=== PATIENT | male | born 1945 | race Caucasian/White ===

== ENCOUNTER 2021-12-13 13:38 | Inpatient (IN) | payer MEDICARE, BC ==
[~2021-12-13] VITALS: Ht 167.6 cm; Wt 90.7 kg
--- NOTE | 2021-12-13 14:50 | NUR ---
MS RN DIRECT ADMIT NOTES RECEIVED PATIENT - DIRECT ADMIT FROM MORRIS. PATIENT IN BED, AWAKE, A/O X4. ON ROOM AIR; NO SOB OR ANY S/S OF RESPIRATORY DISTRESS. NO COMPLAINS OF PAIN AT THIS TIME. CONDOM CATH IN PLACE. VS WITHIN NORMAL LIMITS. SAFETY PRECAUTIONS IN PLACE; BED IN LOW POSITION AND LOCKED, RAILS UP X2, CALL LIGHT WITHIN REACH. WILL CONTINUE TO MONITOR PATIENT.
[2021-12-13] MEDS ORDERED: METF-881 PO (15:03)
[2021-12-13] MEDS ORDERED: BENA40TA8 PO (15:03)
[2021-12-13] MEDS ORDERED: ALLO100T PO (15:03)
[2021-12-13 16:11] VITALS: BP 139/68
[2021-12-13] MEDS ORDERED: ONDANSETRON HCL/PF 4 MG/2 ML VIAL IVP PRN (16:30)
[2021-12-13] MEDS ORDERED: MAG HYDROX/AL HYDROX/SIMETH 30 ML UDC PO PRN (16:30)
[2021-12-13] MEDS ORDERED: ACETAMINOPHEN 325 MG TABLET PO PRN (16:30)
[2021-12-13] MEDS ORDERED: Z GUARD REMEDY 4 OZ OINT TP PRN (17:00)
[2021-12-13] MEDS: IV D5/0.45 NACL 1,000 ML IV PRN (18:36)
--- NOTE | 2021-12-13 18:58 | NUR ---
MS RN CLOSING NOTES PATIENT IN BED, AWAKE, A/O X4. PATIENT ON ROOM AIR; BREATHING EVEN AND UNLABORED; NO SOB OR ANY S/S OF RESPIRATORY DISTRESS DURING THE DAY. MILD BACK PAIN 3/10 AT THIS TIME. LFA IV ACCESS RUNNING D5 1/2 NS @ 75 MLS/HR. CONDOM CATH IN PLACE DRAINING DARK YELLOW URINE. ALL NEEDS ATTENDED DURING THE DAY. SAFETY PRECAUTIONS IN PLACE; BED IN LOW POSITION AND LOCKED, RAILS UP X2, CALL LIGHT WITHIN REACH. WILL ENDORSE TO CENTER LINE CUTTER OPERATOR NURSE FOR MARGARITA.
--- NOTE | 2021-12-13 19:10 | NUR ---
MS/RN OPENING NOTE RECEIVED PATIENT RESTING IN BED. AWAKE, ALERT AND ORIENTED X 4. ABLE TO MAKE NEEDS KNOWN. DENIES PAIN AT THIS TIME. CONTINUES ON ROOM AIR WITH NO S/SX OF RESPIRATORY DISTRESS NOTED. IV ACCESS TO LEFT FOREARM #20G AND RIGHT WRIST #20G BOTH INTACT AND PATENT. CONTINUES ON IVF D5 1/2 NS @ 75ML/HR. PATIENT IS NPO AFTER MIDNIGHT FOR PLANNED ERCP PROCEDURE IN AM. PATIENT AWARE AND AGREEABLE. WILL OBTAIN CONSENT TONIGHT. CONDOM CATHETER IN PLACE DRAINING KEN COLORED URINE TO GRAVITY. CALL LIGHT WITHIN REACH. FREQUENT SAFETY CHECKS MADE. ASPIRATION, FALL AND SAFETY PRECAUTIONS MAINTAINED. ALL NEEDS ATTENDED TO AT THIS TIME.
[2021-12-13 20:00] VITALS: BP 139/77
--- NOTE | 2021-12-13 20:00 | NUR ---
MS/RN NOTE OBTAINED INFORMED CONSENT FOR ERCP ON 12/13. CONSENT SIGNED BY SECOND RN GERMAN D/T PATIENT UNABLE TO SIGN. CONSENT PLACED IN CHART. PATIENT IS NPO AFTER MIDNIGHT. AWARE AND AGREEABLE.
--- NOTE | 2021-12-13 21:00 | NUR ---
MS/RN NOTE IV TO RIGHT WRIST DISLODGED. REMOVED IV AND PRESSURE DRESSING APPLIED. MINIMAL DRAINAGE NOTED. PATIENT TOLERATED WELL. CURRENT IV SITE IS LEFT FOREARM #20G INTACT AND PATENT.
[2021-12-13] MEDS ORDERED: MAGNESIUM HYDROXIDE 30 ML UDC PO PRN (22:00)
[2021-12-14] MEDS: MORPHINE SULFATE INJ 2 MG/ML DISP.SYRIN IV PRN ×2 (03:02→22:17)
--- NOTE | 2021-12-14 06:10 | NUR ---
MS/RN CLOSING NOTE PATIENT CURRENTLY SLEEPING IN BED. ALERT AND ORIENTED X 4. ABLE TO MAKE NEEDS KNOWN. DENIES PAIN AT THIS TIME. CONTINUES ON ROOM AIR WITH NO S/SX OF RESPIRATORY DISTRESS NOTED. IV ACCESS TO LEFT FOREARM #20G INTACT AND PATENT. CONTINUES ON IVF D5 1/2 NS @ 75ML/HR. CONTINUES ON NPO STATUS FOR ERCP PROCEDURE TODAY. PATIENT AWARE AND AGREEABLE. CONSENT IN CHART. CONDOM CATHETER IN PLACE DRAINING KEN COLORED URINE TO GRAVITY. CALL LIGHT WITHIN REACH. FREQUENT SAFETY CHECKS MADE. ASPIRATION, FALL AND SAFETY PRECAUTIONS MAINTAINED. WILL ENDORSE PLAN OF CARE TO ONCOMING SHIFT RN.
[2021-12-14 06:19] LABS: BASOPHILS % (AUTO) 0.6 % (0.0-2.0); HEMATOCRIT 34 % (39-51); HEMOGLOBIN 11.4 g/dL (13.5-17.5); LYMPHOCYTES # (AUTO) 1.5 K/uL (0.8-4.8); LYMPHOCYTES % (AUTO) 22.2 % (20.0-44.0); MEAN CORPUSCULAR HGB CONC 33 g/dl (31.0-36.0); MEAN CORPUSCULAR VOLUME 89 fL (80-96); MONOCYTES # (AUTO) 0.5 K/uL (0.1-1.30); MONOCYTES % (AUTO) 7.4 % (2.0-12.0); NEUTROPHILS # (AUTO) 4.4 K/uL (1.8-8.9); NEUTROPHILS % (AUTO) 65.8 % (43.0-81.0); PLATELET COUNT (AUTO) 215 K/uL (150-450); RED BLOOD CELL COUNT(AUTO) 3.83 MIL/uL (4.5-6.0); WHITE BLOOD COUNT (AUTO) 6.7 K/uL (4.3-11.0)
--- NOTE | 2021-12-14 07:50 | NUR ---
MS RN OPENING NOTE. RECEIVED PATIENT RESTING IN BED, EASILY AROUSED UPON INTRODUCTION. A/O X4. NO CURRENT S/SX OF RESPIRATORY DISTRESS OR C/O PAIN. IV ACCESS TO LEFT FOREARM INTACT AND PATENT AT THIS TIME. REMAINS ON NPO STATUS FOR PLANNED ERCP PROCEDURE SCHEDULED FOR 10AM ON SHIFT. CONDOM CATHETER INTACT AND FLOWING WELL. BED IN LOWEST POSITION AND LOCKED. BED FLAT PER PATIENT REQUEST. SIDERAIL UP X2. CALL-LIGHT WITHIN REACH ALTHUGH PATIENT UNABLE TO USE DUE TO QUADRIPLEGIC STATUS. PATIENT ABLE TO CALL OUT AND VERBALIZE NEEDS. WILL CONTINUE TO MONITOR.
[2021-12-14 08:06] LABS: ALBUMIN 2.7 g/dL (3.4-5.0); BILIRUBIN,DIRECT 1.5 mg/dL (0.0-0.2); BILIRUBIN,TOTAL 3.2 mg/dL (0.2-1.0); CREATININE 0.6 mg/dL (0.6-1.3); MAGNESIUM 1.7 mg/dL (1.8-2.4); PHOSPHORUS 2.6 mg/dL (2.5-4.9); TOTAL PROTEIN, SERUM 6.8 g/dL (6.4-8.2)
[2021-12-14 08:21] LABS: POTASSIUM 3.6 mmol/L (3.5-5.1)
[2021-12-14] MEDS ORDERED: IOHEXOL 50 ML IV ONE (08:26)
[2021-12-14] MEDS ORDERED: ANESTHESIA TRAY IN PYXIS 1 EA TRAY MC ONE (08:27)
[2021-12-14] MEDS ORDERED: INDOMETHACIN 50 MG SUPP.RECT ONE (08:27)
[2021-12-14] MEDS: IV D5/0.45 NACL 1,000 ML IV PRN (09:33)
[2021-12-14] MEDS: Magnesium 1GM/D5W 100ML PREMIX 100 ML IV SCH ×2 (09:34→13:50)
--- NOTE | 2021-12-14 09:45 | NUR ---
RN NOTE PATIENT TAKEN OFF UNIT BY BED @ 4086 FOR ERCP PROCEDURE.
[2021-12-14] MEDS ORDERED: FENTANYL PF 100MCG/2ML AMPUL ONE (09:54)
[2021-12-14] MEDS ORDERED: PROPOFOL 20 ML IV ONE (09:54)
[2021-12-14] MEDS ORDERED: MIDAZOLAM HCL 2 MG/2ML VIAL ONE (09:55)
[2021-12-14] MEDS ORDERED: Magnesium 1GM/D5W 100ML PREMIX 100 ML IV SCH (10:00)
[2021-12-14 10:35] LABS: THYROID STIMULATING HORMONE 5.623 uIU/mL (0.358-3.74)
--- NOTE | 2021-12-14 18:44 | NUR ---
RN CLOSING NOTE PATIENT REMAINS A/OX4. NO S/SX OF RESPIRATORY DISTRESS OR PAIN REPORTED OR OBSERVED. PATIENT HAD SCHEDULED ERCP PROCEDURE DONE ON SHIFT. TOLERATED WELL (SEE PROCEDURAL NOTES FOR DETAILS). CONDOM CATHETER CHANGED AND INTACT. DIET ADVANCED TO CLEAR LIQUID FROM RECENT NPO STATUS UNTIL FURTHER NOTICE. IV ACCESS TO LFA PATENT WITH D5 1/2 NS RUNNING CONTINUOUSLY @ 75ML/HR. OUTSIDE CAREGIVER AT BEDSIDE THROUGHOUT SHIFT. SAFETY MEASURES IN PLACE WITH BED IN LOWEST POSITION AND LOCKED. SIDERAILS UP, CALL LIGHT WITHIN REACH. WILL CONTINUE TO MONITOR.
--- NOTE | 2021-12-14 19:59 | NUR ---
MS RN OPENING NOTE RECEIVED PATIENT IN BED. A/OX4. NO S/S OF APPARENT DISTRESS IN ROOM AIR. DENIES PAIN AT THIS TIME. C/O DIARRHEA-- WILL MONITOR. PATIENT IS QUADRIPLEGIC. L. FA #20G RUNNING D5 06/03 NS @75MLS/HR. SAFETY IN PLACE. WILL CONTINUE WITH PLAN OF CARE FOR PATIENT.
[2021-12-14 20:00] VITALS: BP 122/74
[2021-12-15] MEDS: IV D5/0.45 NACL 1,000 ML IV PRN ×2 (03:21→15:08)
--- NOTE | 2021-12-15 06:48 | NUR ---
MS RN CLOSING NOTE PATIENT IN BED, A/OX4. NO S/S OF APPARENT DISTRESS IN ROOM AIR. C/O PAIN IN HIS THROAT AT THIS TIME BUT TOLERABLE AND NOT WANTING PAIN MEDICATION FOR NOW AND DENIES ANY HARD TIME BREATHING NOR SOB. IV D5 1/2 NS RUNNING @75MLS/HR. CONDOM CATHETER DRAINING ORANG OUTPUT EMPTIED 1,600 MLS. ALL NEEDS ATTENDED. ALL SCHEDULED MEDICATIONS ADMINISTERED. WILL ENDORSE TO MORNING SHIFT RN FOR CONTINUITY OF CARE.
--- NOTE | 2021-12-15 07:30 | NUR ---
MS RN OPENING NOTES RECEIVED PATIENT ON BED AWAKE AND A/O X4. PATIENT IS QUADRIPLEGIC. ON ROOM AIR TOLERATING WELL. NO SOB NOTED. NOT IN DISTRESS. WITH IV ACCESS AT THE LEFT FOREARM G20 WITH IVF D5 1/2 NS AT 75ML/HR INFUSING WELL. SAFETY MEASURES IN PLACED. CALL LIGHT WITHIN REACH. BED ON LOWEST LOCKED POSITION, SIDE RAILS UP X2. WILL CONTINUE TO MONITOR.
[2021-12-15 08:00] VITALS: BP 125/72
[2021-12-15 08:44] LABS: BASOPHILS # (AUTO) 0.1 K/uL (0.0-0.2); BASOPHILS % (AUTO) 0.8 % (0.0-2.0); EOSINOPHILS % (AUTO) 4.6 % (0.0-6.0); HEMATOCRIT 33 % (39-51); LYMPHOCYTES # (AUTO) 1.3 K/uL (0.8-4.8); LYMPHOCYTES % (AUTO) 20.4 % (20.0-44.0); MEAN CORPUSCULAR HGB CONC 33 g/dl (31.0-36.0); MEAN CORPUSCULAR VOLUME 89 fL (80-96); MONOCYTES # (AUTO) 0.5 K/uL (0.1-1.30); MONOCYTES % (AUTO) 7.9 % (2.0-12.0); NEUTROPHILS # (AUTO) 4.4 K/uL (1.8-8.9); NEUTROPHILS % (AUTO) 66.3 % (43.0-81.0); PLATELET COUNT (AUTO) 220 K/uL (150-450); RED BLOOD CELL COUNT(AUTO) 3.74 MIL/uL (4.5-6.0); WHITE BLOOD COUNT (AUTO) 6.6 K/uL (4.3-11.0)
[2021-12-15 09:10] LABS: ALANINE AMINOTRANSFERASE 159 U/L (12-78); ALBUMIN 2.5 g/dL (3.4-5.0); ALKALINE PHOSPHATASE 200 U/L (46-116); ASPARTATE AMINOTRANSFERASE 39 U/L (15-37); BILIRUBIN,DIRECT 1.1 mg/dL (0.0-0.2); BILIRUBIN,TOTAL 2.4 mg/dL (0.2-1.0); CALCIUM, SERUM 7.9 mg/dL (8.5-10.1); CARBON DIOXIDE 21 mmol/L (21-32); CHLORIDE 105 mmol/L (98-107); CREATININE 0.5 mg/dL (0.6-1.3); GLUCOSE 146 mg/dL (74-106); POTASSIUM 3.3 mmol/L (3.5-5.1); SODIUM SERUM 137 mmol/L (136-145); UREA NITROGEN, BLOOD 7 mg/dL (7-18)
[2021-12-15] MEDS ORDERED: POTASSIUM CHLORIDE 20 MEQ TAB.PRT.SR PO SCH (11:30)
[2021-12-15 16:00] VITALS: BP 134/60
--- NOTE | 2021-12-15 18:41 | NUR ---
MS TRUPTI OPENING NOTES PATIENT ON BED AWAKE AND A/O X4. PATIENT IS QUADRIPLEGIC. ON ROOM AIR TOLERATING WELL. NO SOB NOTED. NOT IN DISTRESS. WITH IV ACCESS AT THE LEFT FOREARM G20 WITH IVF D5 1/2 NS AT 75ML/HR INFUSING WELL. PATIENT IS FOR DISCHARGE TOMORROW AT 8AM. SAFETY MEASURES IN PLACED. CALL LIGHT WITHIN REACH. BED ON LOWEST LOCKED POSITION, SIDE RAILS UP X2. WILL ENDORSE TO NEXT SHIFT FOR MARGARITA. Addendum: 12/15/21 at 1843 by MATT MARTINEZ RN ERROR.
--- NOTE | 2021-12-15 19:48 | NUR ---
MS RN OPENING NOTES RECEIVED PATIENT ON BED AA/O X4. PATIENT IS QUADRIPLEGIC. ON ROOM AIR TOLERATING WELL. NO SOB/DISTRESS NOTED.WITH IV ACCESS AT THE LEFT FOREARM G20 WITH IVF D5 1/2 NS AT 75ML/HR INFUSING WELL. SAFETY MEASURES IN PLACED. CALL LIGHT WITHIN REACH. BED ON LOWEST LOCKED POSITION, SIDE RAILS UP X2. WILL CONTINUE TO MONITOR.
[2021-12-15 20:00] VITALS: BP 150/72
[2021-12-15] MEDS: MORPHINE SULFATE INJ 2 MG/ML DISP.SYRIN IV PRN (22:20)
[2021-12-15 22:50] VITALS: BP 150/72
[2021-12-16] MEDS: IV D5/0.45 NACL 1,000 ML IV PRN (05:52)
--- NOTE | 2021-12-16 06:47 | NUR ---
MS RN CLOSING NOTES PATIENT ON BED AWAKE AND A/O X4. PATIENT IS QUADRIPLEGIC. ON ROOM AIR TOLERATING WELL. NO SOB NOTED. NOT IN DISTRESS. WITH IV ACCESS AT THE LEFT FOREARM G20 WITH IVF D5 1/2 NS AT 75ML/HR INFUSING WELL. SAFETY MEASURES IN PLACED. CALL LIGHT WITHIN REACH. BED ON LOWEST LOCKED POSITION, SIDE RAILS UP X2. WILL ENDORSE TO NEXT SHIFT FOR MARGARITA.
[2021-12-16 07:22] LABS: BASOPHILS # (AUTO) 0.1 K/uL (0.0-0.2); BASOPHILS % (AUTO) 0.8 % (0.0-2.0); HEMATOCRIT 34 % (39-51); HEMOGLOBIN 11.1 g/dL (13.5-17.5); LYMPHOCYTES % (AUTO) 29.3 % (20.0-44.0); MEAN CORPUSCULAR HGB CONC 33 g/dl (31.0-36.0); MEAN CORPUSCULAR VOLUME 89 fL (80-96); MONOCYTES # (AUTO) 0.5 K/uL (0.1-1.30); MONOCYTES % (AUTO) 7.5 % (2.0-12.0); NEUTROPHILS # (AUTO) 3.8 K/uL (1.8-8.9); NEUTROPHILS % (AUTO) 57.4 % (43.0-81.0); PLATELET COUNT (AUTO) 241 K/uL (150-450); RED BLOOD CELL COUNT(AUTO) 3.81 MIL/uL (4.5-6.0); WHITE BLOOD COUNT (AUTO) 6.7 K/uL (4.3-11.0)
--- NOTE | 2021-12-16 07:30 | NUR ---
MS RN OPENING NOTE Patient in bed, asleep. A/O x 4, able to make needs known. On room air, breathing evenly and unlabored. No SOB or s/s of distress noted. IV access on LFA #20 infusing D5 1/2 Ns at 75 ml/hr. Condom catheter intact draining to a yellow colored urine. Safety precautions in place: bed in low, locked position; siderails up x 2; call light within reach. Will continue to monitor.
[2021-12-16 08:00] VITALS: BP 160/83
[2021-12-16 08:16] LABS: ALANINE AMINOTRANSFERASE 126 U/L (12-78); ALBUMIN 2.5 g/dL (3.4-5.0); ALKALINE PHOSPHATASE 189 U/L (46-116); ASPARTATE AMINOTRANSFERASE 25 U/L (15-37); BILIRUBIN,DIRECT 0.8 mg/dL (0.0-0.2); BILIRUBIN,TOTAL 1.4 mg/dL (0.2-1.0); CALCIUM, SERUM 7.9 mg/dL (8.5-10.1); CARBON DIOXIDE 23 mmol/L (21-32); CHLORIDE 106 mmol/L (98-107); CREATININE 0.5 mg/dL (0.6-1.3); GLUCOSE 121 mg/dL (74-106); POTASSIUM 3.8 mmol/L (3.5-5.1); SODIUM SERUM 137 mmol/L (136-145); TOTAL PROTEIN, SERUM 6.9 g/dL (6.4-8.2); UREA NITROGEN, BLOOD 7 mg/dL (7-18)
--- NOTE | 2021-12-16 10:30 | NUR ---
RN NOTE EMT here to sampler pickup patient. BP is high at 182/102. Dr. Tobin ordered clonidine 0.2 mg PO. Carried out.
[2021-12-16 11:21] VITALS: BP 182/102
[2021-12-16] MEDS ORDERED: CLONIDINE HCL 0.1 MG TABLET PO ONE (11:30)
[2021-12-16] MEDS ORDERED: hydrALAZINE HCL IV 20 MG VIAL IV ONE (11:30)
--- NOTE | 2021-12-16 12:00 | NUR ---
RN NOTE BP rechecked 155/82. EMT ready to take patient home.
--- NOTE | 2021-12-16 12:17 | NUR ---
DISCHARGE NOTE Patient is A/O x 4, able to make needs known. Stable on room air, breathing evenly and unlabored. No SOB or s/s of distress noted. Discharge instructions given to daughter and patient, both verbalized understanding. IV access removed, catheter tip intact. Pressure dressing applied, no signs of bleeding noted. ID band removed. BP decreased to 155/82 from 182/102 after catapres 0.[address] Tobin's order. Patient left in stable condition via ambulance with [address]
== END 2021-12-16 11:10 | disposition home or self-care (01) | DRG 444 ==
LOC: MED 14:25
PROVIDERS: ADMIT Internal Medicine; ATTEND Internal Medicine
PROC: 0F798ZZ Dilation of Common Bile Duct, Via Natural or Artificial Opening Endoscopic (ICD-10-PCS; principal; 2021-12-14)
DX: K80.42 Calculus of bile duct with acute cholecystitis without obstruction (principal); E43 Unspecified severe protein-calorie malnutrition; G82.50 Quadriplegia, unspecified; K85.10 Biliary acute pancreatitis without necrosis or infection; E87.1 Hypo-osmolality and hyponatremia; E87.2 Acidosis; E88.09 Other disorders of plasma-protein metabolism, not elsewhere classified; E11.9 Type 2 diabetes mellitus without complications; Z79.84 Long term (current) use of oral hypoglycemic drugs; M10.9 Gout, unspecified; R79.89 Other specified abnormal findings of blood chemistry; G71.00 Muscular dystrophy, unspecified; I10 Essential (primary) hypertension
CPT/HCPCS: 36415; 74018; 80048-TC; 80061-TC; 80076-TC; 82728-TC; 83540-TC; 83735-TC; 84100-TC; 84439-TC; 84443-TC; 85025-TC; 85610-TC; 85730-TC; 87081-TC; 93307-TC; 94762-TC; A4349; G0378; J2250; J2270; J2370; J2704; J3010; J3475; J3490; Q9967